=== PATIENT | female | born 1990 | race Caucasian/White ===

== ENCOUNTER 2020-10-12 10:33 | Emergency (ER) | payer OTHER, MEDICAID, SELFPAY ==
[2020-10-12 10:52] VITALS: BP 120/69; PULSE 87; RESP 18; TEMP 36.2; O2SAT 100
[2020-10-12 11:40] LABS: Basophils Absolute Auto 0.1 K/mm3 (0.0-0.1); Basophils Percent Auto 0.4 % (0.2-1.2); Eosinophils Absolute Auto 0.1 K/mm3 (0-0.3); Eosinophils Percent Auto 0.4 % (0-4.4); Hematocrit 33.3 % (37.0-47.0); Hemoglobin 11.2 g/dL (12.0-15.0); Immature Granulocyte Absolute 0.05 K/mm3 (0.00-0.031); Immature Granulocyte Percent A 0.4 % (0-0.5); Lymphocytes Absolute Auto 0.84 K/mm3 (0.9-3.2); Lymphocytes Percent Auto 6.3 % (18.3-44.2); Mean Corpuscular HGB Conc 33.6 g/dl (32-36); Mean Corpuscular Hemoglobin 31.6 pg (26-34); Mean Corpuscular Volume 94.1 fl (80-100); Mean Platelet Volume 8.9 fl (7.4-10.4); Monocytes Absolute Auto 0.5 K/mm3 (0.1-0.6); Neutrophils Absolute Auto 11.8 K/mm3 (1.3-6.7); Neutrophils Percent Auto 88.5 % (45.5-73.1); Platelet Count Result 239 k/mm3 (150-375); Red Blood Count 3.54 M/mm3 (4.2-5.4); Red Cell Distribution Width 13.6 % (11.5-14.5); White Blood Count 13.4 K/mm3 (4.5-10.0)
[2020-10-12 11:50] LABS: Alanine Aminotransferase 13 U/L (4-35); Albumin Level 3.5 g/dL (3.5-5.1); Alkaline Phosphatase 106 U/L (38-126); Anion Gap 6 mmol/L (8-16); Aspartate Amino Transferase 22 U/L (14-36); Bilirubin,Total < 0.1 mg/dL (0.2-1.3); Blood Urea Nitrogen 8 mg/dL (7-17); Calcium 8.8 mg/dL (8.4-10.2); Carbon Dioxide 24 mmol/L (22-30); Chloride 107 mmol/L (98-107); Estimated CRCL calculation 105 ml/min; Estimated Glomerular Filt Rate > 60; Glucose 89 mg/dL (65-105); Lipase 29 U/L (23-300); Potassium 3.8 mmol/L (3.4-5.0); Sodium 137 mmol/L (137-145)
--- NOTE | 2020-10-12 12:28 | PC.NURSE ---
Pt. to bathroom to attempt to provide urine specimen.
--- NOTE | 2020-10-12 13:06 | ED.ABDPAIN ---
HPI - Abdominal Pain General Chief Complaint: Abdominal Pain Stated Complaint: right flank pain 19 weeks Time Seen by Provider: 10/12/20 12:25 Source: patient Mode of arrival: ambulatory Limitations: no limitations History of Present Illness HPI narrative: 29-year-old female Patient is G1 at 19 weeks gestation She complains of a 6-day history of pain in her right flank that radiates to her right lower abdomen Really no other associated symptoms She denies hematuria or dysuria No nausea vomiting or diarrhea No fever No issues with the , no spotting or bleeding or cramping Related Data Allergies Allergy/AdvReac Type Severity Reaction Status Date / Time No Known Allergies Allergy Verified 10/12/20 15:19 Review of Systems Review of Systems: All systems reviewed & are unremarkable except as noted in HPI and below Constitutional: Constitutional: Reports no additional constitutional complaints, Denies chills, Denies fever(s) and Denies headache(s) Eyes: Eyes: Reports no additional eye complaints and Denies change in vision ENT: Denies headache(s) and Denies sore throat Cardiovascular: Cardiovascular: Denies chest pain and Denies dyspnea Respiratory: Respiratory: Denies cough and Denies dyspnea Gastrointestinal: Gastrointestinal: Reports abdominal pain, Denies diarrhea and Denies vomiting Genitourinary: Genitourinary: Denies abnormal vaginal bleeding, Denies urinary frequency, Denies dysuria and Reports flank pain Musculoskeletal: Musculoskeletal: Reports back pain, Denies deformity, Denies arthralgias, Denies joint swelling and Denies numbness Integumentary/Breasts: Skin/Breast: Denies rash and Denies wounds Neurologic: Denies headache(s), Denies focal weakness and Denies numbness Psychiatric: Psychiatric: Reports no additional psychiatric complaints [facility] Social History Social History Gender identity (if verbalized by the patient): Female Exam Const: General: cooperative, healthy appearing, no acute distress and alert Orientation/consciousness: patient oriented x3 (alert) HENMT: Head: normal to inspection, normocephalic and atraumatic Ears: external ears normal General nose exam: no epistaxis Eyes: Conjunctivae: conjunctivae normal EOM: EOMs intact bilaterally Neck: Neck: normal visual inspection, supple and no JVD Resp: Effort & Inspection: normal respiratory effort and not labored Auscultation: clear to auscultation bilaterally and other (BS =) Cardio: Rate: regular rate Rhythm: regular rhythm Heart sounds: no murmurs GI: GI Palp: Yes Soft to palpation, No Tenderness to palpation present (GI), No Guarding due to palpation present (GI) and No Rebound tenderness present Other: Abdomen essentially is completely nontender to palpation, there is no reproducible pain or tenderness Fundal height is not quite to the umbilicus yet : General: Yes CVA tenderness Other: Mild CVA tenderness on the right none on the left Skin: General skin exam: normal color and no rashes or lesions noted Neuro: General: patient oriented x3 (alert) and moves all extremities Speech: normal speech Extrem: General: normal to inspection Psych: Affect: normal affect Course Course Emergency Course: Discussed with Dr. Jamison or a dispo and treatment will get ceftriaxone here and then go home on Anc and follow-up there either on Saturday or Saturday Vital Signs Vital signs: Vital Signs Temperature 36.2 C L 10/12/20 10:52 Pulse Rate 87 10/12/20 10:52 Respiratory Rate 18 10/12/20 10:52 Blood Pressure 120/69 10/12/20 10:52 Pulse Oximetry 100 10/12/20 10:52 Temperature 36.2 C L 10/12/20 10:52 Pulse Rate 74 10/12/20 15:31 Respiratory Rate 18 10/12/20 15:31 Blood Pressure 121/73 10/12/20 15:31 Pulse Oximetry 100 10/12/20 15:31 MDM - Abdominal Pain Lab Data Result diagrams: 10/12/20 11:33 10/12/20 11:33 Labs: Lab Results
[2020-10-12 13:09] LABS: Add Urine Microscopic? YES; Appearance Urine Cloudy (Clear); Bacteria Urine Trace /hpf; Bilirubin Urine Negative (Negative); Blood Urine Negative (Negative); Color Urine Yellow (Yellow); Glucose Urine UA Negative (Negative); Ketones Urine Negative (Negative); Leukocyte Esterase Ur 3+ LEU/UL (Negative); Mucus Urine Rare /lpf; Nitrate Urine Positive (Negative); Protein Urine Negative (Negative); Specific Grav Ur 1.019 (1.001-1.035); Squamous Epithelial Cell Urine Moderate /hpf (Few); Urobilinogen Urine Negative mg/dL (<2.0); WBC Urine >75 /hpf
[2020-10-12] MEDS: Please add drug allergy info to patient profile. 1 EACH XX (15:20)
[2020-10-12 15:31] VITALS: BP 121/73; PULSE 74; RESP 18; O2SAT 100
== END 2020-10-12 15:54 | disposition home or self-care (01) ==
PROVIDERS: Emergency Medicine; Emergency Provider Emergency Medicine
DX: N39.0 Urinary tract infection, site not specified (principal)
CPT/HCPCS: 36415; 80053; 81001; 81025; 83690; 85025; 87077; 87086; 87088; 87186; 96365; 99284; J0696

== ENCOUNTER 2021-01-31 14:09 | Outpatient (RCR) | payer OTHER, SELFPAY ==
[2021-01-30 17:10] LABS: Hematocrit 32.1 % (37.0-47.0); Hemoglobin 10.2 g/dL (12.0-15.0)
[2021-01-30 20:29] LABS: Glucose 1 Hour PP 50gm Dose 166 mg/dL
[2021-01-30 21:18] LABS: HIV 1/2 Ab P24 Ag Result Negative (Negative)
[2021-01-31] MEDS: RHO(D) IMMUNE GLOBULIN 300 MCG/2 ML SYRINGE IM (14:09)
== END 2021-04-30 23:59 | disposition home or self-care (01) ==
LOC: ANHLAB 14:09
PROVIDERS: Visit Provider Obstetrics & Gynecology
DX: Z11.4 Encounter for screening for human immunodeficiency virus [HIV] (principal); Z29.13 Encounter for prophylactic Rho(D) immune globulin; O36.0190 Maternal care for anti-D [Rh] antibodies, unspecified trimester, not applicable or unspecified; Z3A.00 Weeks of gestation of pregnancy not specified
CPT/HCPCS: 36415; 82947; 85014; 85018; 85461; 86703; 90384; 96372; G0432; J2790

== ENCOUNTER 2021-02-20 04:36 | Inpatient (IN) | payer OTHER, SELFPAY ==
[2021-02-20] VITALS (114 sets, daily range): BP systolic 88–170; BP diastolic 46–107; PULSE 58–111; RESP 16–18; TEMP 36.2–36.9; O2SAT 80–100; BMI 24.9
[2021-02-20 05:12] LABS: Basophils Percent Auto 0.3 % (0.2-1.2); Eosinophils Absolute Auto 0.1 K/mm3 (0-0.3); Eosinophils Percent Auto 0.6 % (0-4.4); Hematocrit 29.2 % (37.0-47.0); Hemoglobin 9.7 g/dL (12.0-15.0); Immature Granulocyte Absolute 0.05 K/mm3 (0.00-0.031); Immature Granulocyte Percent A 0.4 % (0-0.5); Lymphocytes Absolute Auto 1.35 K/mm3 (0.9-3.2); Lymphocytes Percent Auto 10.9 % (18.3-44.2); Mean Corpuscular HGB Conc 33.2 g/dl (32-36); Mean Corpuscular Hemoglobin 29.8 pg (26-34); Mean Corpuscular Volume 89.6 fl (80-100); Mean Platelet Volume 9.6 fl (7.4-10.4); Monocytes Absolute Auto 0.7 K/mm3 (0.1-0.6); Monocytes Percent Auto 5.7 % (2.6-8.5); Neutrophils Absolute Auto 10.2 K/mm3 (1.3-6.7); Neutrophils Percent Auto 82.1 % (45.5-73.1); Platelet Count Result 252 k/mm3 (150-375); Red Blood Count 3.26 M/mm3 (4.2-5.4); Red Cell Distribution Width 15.3 % (11.5-14.5); White Blood Count 12.4 K/mm3 (4.5-10.0)
[2021-02-20] MEDS: fentaNYL CITRATE INJ (*CRX) 100 MCG/2 ML VIAL 50 MCG IV PUSH (05:14)
[2021-02-20] MEDS: LACTATED RINGERS 1,000 ML 125 ML IV CONT ×2 (05:30→05:48)
--- NOTE | 2021-02-20 05:45 | WPDANESEPP ---
Anes - Eval Pre Procedure Procedure: labor epidural Date/Time: 02/20/21 05:45 Surgeon: Addison Preop Diagnosis: Abd pain with contractions Pre Op Diagnosis: contractions Patient Data Age: 30 Gender: F Height: 1.65 m Weight: 68 kg Last Vital Signs Temp 97.1 F L 02/20/21 05:00 Allergies Allergy/AdvReac Type Severity Reaction Status Date / Time No Known Allergies Allergy Verified 10/12/20 15:19 Home Medications Medication Instructions Recorded Confirmed Type cephalexin 500 mg PO Q6H 7 Days #28 cap 10/12/20 Rx ondansetron HCl [Zofran] 4 mg PO Q6H PRN #10 tablet 10/12/20 Rx Laboratory Tests 02/20/21 02/20/21 02/20/21 05:05 05:05 05:06 WBC 12.4 K/mm3 H K/mm3 (4.5-10.0) RBC 3.26 M/mm3 L M/mm3 (4.2-5.4) Hgb 9.7 g/dL L g/dL (12.0-15.0) Hct 29.2 % L % (37.0-47.0) MCV 89.6 fl fl (80-100) MCH 29.8 pg pg (26-34) MCHC 33.2 g/dl g/dl (32-36) RDW 15.3 % H % (11.5-14.5) Plt Count 252 k/mm3 k/mm3 (150-375) MPV 9.6 fl fl (7.4-10.4) Immature Gran % (Auto) 0.4 % % (0-0.5) Neut % (Auto) 82.1 % H % (45.5-73.1) Lymph % (Auto) 10.9 % L % (18.3-44.2) Cass % (Auto) 5.7 % % (2.6-8.5) Eos % (Auto) 0.6 % % (0-4.4) Baso % (Auto) 0.3 % % (0.2-1.2) Lymph # (Auto) 1.35 K/mm3 K/mm3 (0.9-3.2) Cass # (Auto) 0.7 K/mm3 H K/mm3 (0.1-0.6) Eos # (Auto) 0.1 K/mm3 K/mm3 (0-0.3) Baso # (Auto) 0.0 K/mm3 K/mm3 (0.0-0.1) Abs Immat Gran (auto) 0.05 K/mm3 H K/mm3 (0.00-0.031) Absolute Neuts (auto) 10.2 K/mm3 H K/mm3 (1.3-6.7) Absolute Nucleated RBC 0.0 K/mm3 K/mm3 (0.0-0.012) Nucleated RBC % 0.0 % % (0.0-0.2) RPR Pending HIV 1&2 Ab/P24 Ag 4thGn Pending Patient hx anesthesia problems: none Family hx anesthesia problems: none Results Review: All pre-operative results and documents have been reviewed as part of the pre-operative evaluation. [facility] Social History Social History Smoking status: Current every day smoker Tobacco type: cigarettes Second hand tobacco smoke exposure: Yes Substance use: current Gender identity (if verbalized by the patient): Female Spiritual care concerns: No Exam Day of Procedure 02/20/21 05:45 Patient weight: normal Lungs: clear to auscultation Airway: Mallampati scale class II Neurological: alert and oriented
[2021-02-20 06:47] LABS: HIV 1/2 Ab P24 Ag Result Negative (Negative)
[2021-02-20 07:18] LABS: Amphetamine Screen Urine Negative (Negative); Barbiturate Screen Urine Negative (Negative); Benzodiazepines Screen Urine Negative (Negative); Cannabinoid Screen Urine Positive (Negative); Cocaine Screen Urine Positive (Negative); Methadone Screen Urine Negative (Negative); Opiate Screen Urine Negative (Negative); Phencyclidine Screen Urine Negative (Negative)
--- NOTE | 2021-02-20 08:50 | PC.NURSE ---
Pt's urine drug screen is positive for both cocaine and marijuana. Support person asked to step out of room to speak with pt. Explained to pt that her drug screen was positive for cocaine and the social service department would be notified. Pt first said she hadn't done cocaine but was around someone who had and there must be a cross contamination . Talked with pt about being honest with us so we can help her and the baby. She admitted to doing a line of cocaine . Discussed with her the possibility of baby having withdrawals. Pt is concerned with the baby being taken away, discussed with her that this is her first baby and she did not have any positive drug screens for cocaine in the office. Encourage pt to be open and honest with the staff and so we can assist her through this.
[2021-02-20 10:41] LABS: Rapid Plasma Reagin Non-Reactive (NonReactive)
--- NOTE | 2021-02-20 12:23 | P.PCNOB_ITS ---
OB - Delivery Note Procedure Route of delivery: Episiotomy description: None Laceration Description: Vaginal - 2nd Degree Delivery repair: chromic Specimen: Yes Quantitative Blood Loss (ml): 350 Anesthesia type: Epidural Disposition: floor Narrative: Patient was prepped in the usual manner for this procedure. Maternal expulsive efforts readily delivered vertex with nuchal cord noted. Rest of baby was delivered cord was clamped and cut placenta delivered spontaneously. Cervix vagina and vulva were inspected with second-degree midline laceration noted. This was approximated using 2 0 chromic to approximate the vaginal tissue in a running interlocking manner by the deep tissue and subcuticular layer to approximate the skin. At this point the procedure was considered terminated with immediate postoperative condition of mother baby both excellent. [place] Baby Weeks of gestation at delivery: 38 gender: Male Weight (pounds): 7 Weight (ounces): 0 score one minute: 8 score five minutes: 8
--- NOTE | 2021-02-20 12:23 | WPDHPUPDATE1 ---
History and Physical Update Update Date/Time: 02/20/21 12:23 History and Physical has been reviewed, including an updated exam of the patient. There are NO changes in the patient's condition. Risks, benefits, and alternatives have been discussed and questions answered. Patient agrees to proceed with procedure.
--- NOTE | 2021-02-20 12:23 | WPDOBADMIT ---
Obstetrics - Admit Note Admission Note: record reviewed. No pertinent additions to the history and/or any subsequent changes in the physical findings that are not consistent with the expected course of the were found. Additions to the history and/or subsequent changes in the physical findings follow. None.
[2021-02-20] MEDS: BENZOCAINE 20% AER SPR (*SP) 56 GM CAN 1 SPRAY TOPICAL (14:13)
[2021-02-20] MEDS: WITCH HAZEL 40 PADS 1 PAD TOPICAL (14:13)
--- NOTE | 2021-02-20 15:15 | PC.NURSE ---
1445-Patient transferred to post room #281 via wheelchair. Support person present. Oriented to unit, room, information board, rooming in, admission packet and security measures. Patient verbalizes understanding.
[2021-02-20] MEDS: POLYSACCHARIDE IRON COMPLEX 150 MG CAPSULE PO (17:59)
[2021-02-20] MEDS: DOCUSATE SODIUM 100 MG CAPSULE PO (17:59)
[2021-02-20] MEDS: CLINDAMYCIN HCL 150 MG CAP 300 MG PO ×2 (18:00→23:26)
[2021-02-20] MEDS: IBUPROFEN 600 MG TABLET PO ×2 (18:03→23:31)
[2021-02-20] MEDS: SERTRALINE HCL 50 MG TABLET 100 MG PO (23:26)
[2021-02-21] VITALS: BP 144/84; PULSE 80; RESP 18; TEMP 36.6; O2SAT 100
[2021-02-21] MEDS: diphenhydrAMINE HCl CAP 25 MG CAPSULE PO (03:25)
[2021-02-21] MEDS: ACETAMINOPHEN 325 MG TABLET 650 MG PO (03:25)
[2021-02-21 04:00] VITALS: BP 152/82; PULSE 72; RESP 18; TEMP 36.4; O2SAT 100
[2021-02-21] MEDS: CLINDAMYCIN HCL 150 MG CAP 300 MG PO ×2 (05:08→12:43)
[2021-02-21 05:12] LABS: Hematocrit 26.1 % (37.0-47.0); Hemoglobin 8.5 g/dL (12.0-15.0)
--- NOTE | 2021-02-21 07:15 | P.DS_ITS ---
DS: Admitting Diagnosis Discharge Date 02/21/21 Admitting Diagnosis OB - DS: Summary OB Procedures : None OB Procedures Intrapartum: Spontaneous Vag Delivery OB Procedures: : None Time Spent with Patient Time attestation: Total time spent providing and/or coordinating discharge services: DS: Data Data Completed and Pending Pending studies at discharge: Pending at discharge 02/20/21 12:43 Surgical [PTH] Routine Labs on day of discharge: Labs from last 24 hours 02/21/21 02/20/21 02/20/21 03:15 06:50 05:05 Hgb 8.5 L Hct 26.1 L Urine Opiates Screen Negative Urine Methadone Screen Negative Ur Barbiturates Screen Negative Ur Phencyclidine Scrn Negative Ur Amphetamine Screen Negative U Benzodiazepines Scrn Negative Urine Cocaine Screen Positive A U Cannabinoids Screen Positive A RPR Antibody Identification Passive Due to RH Imm Glob Antigen Identification TNP JOHN, IgG Interpret Not Performed JOHN, Poly Interpret Negative JOHN, Complement Interp Not Performed 02/20/21 05:05 Hgb Hct Urine Opiates Screen Urine Methadone Screen Ur Barbiturates Screen Ur Phencyclidine Scrn Ur Amphetamine Screen U Benzodiazepines Scrn Urine Cocaine Screen U Cannabinoids Screen RPR Non-reactive Antibody Identification Antigen Identification JOHN, IgG Interpret JOHN, Poly Interpret JOHN, Complement Interp Discharge Plan Discharge Discharging Clinician: Tim Jaime Patient Disposition: Home, Self-Care Activity: as tolerated Diet: as tolerated Patient Instructions: Antibiotic Form, How to Stop Smoking (DC) Stand Alone Forms: General Discharge Information Follow-up/Referrals: Tim Jaime MD [Physician] - 3 Weeks Discharge Medications: New ibuprofen 600 mg Tablet 600 mg PO Q6H PRN (Reason: Cramping) Qty: 30 RF: 0 clindamycin HCl 150 mg Capsule 300 mg PO Q6HR 10 Days Qty: 80 RF: 0 Continued sertraline 50 mg tablet 100 mg PO HS RF: 0 Discontinued cephalexin 500 mg capsule 500 mg PO Q6H 7 Days Qty: 28 RF: 0 ondansetron HCl [Zofran] 4 mg tablet 4 mg PO Q6H PRN (Reason: nausea and vomiting) Qty: 10 RF: 0 Date of admission: 02/20/21 04:36 Primary Care Provider: PHYSICIAN,ATTENDING PSYCHIATRIST Admitting Provider: Tim Jaime Attending physician on admission: Tim Jaime Condition: Stable
[2021-02-21 08:25] VITALS: BP 126/74; PULSE 68; RESP 18; TEMP 36.7; O2SAT 100
--- NOTE | 2021-02-21 08:38 | PCCCNOTE ---
Care Coordination Consult: Met with pt. and her friend Evelin. This is Hilario's first child. FOB is unknown at this time as it could be between two gentleman. Hilario has all necessary supplies for the baby including a crib, carseat, clothing, diapers, and formula. She plans to apply for [employer] services. Hilario admits to marijuana use during , recreationally using to help with anxiety. Pt. was honest about her cocaine use and reports she did a line of coke yesterday but she does not know why she did it. Reports she has never used cocaine before and does not plan to use again. She does admit she has suffered from anxiety and depression with her OB prescribing her Zoloft. Hilario has not consistently taken the Zoloft. Pt. does not have a PMD or mental health provider, offered a list which she is agreeable to receiving. Pt. aware DCFS will be contacted for substance use during . Completed online DCFS report # [id number], awaiting determination from DCFS.
[2021-02-21] MEDS: POLYSACCHARIDE IRON COMPLEX 150 MG CAPSULE PO (09:14)
[2021-02-21] MEDS: DOCUSATE SODIUM 100 MG CAPSULE PO (09:14)
[2021-02-21] MEDS: IBUPROFEN 600 MG TABLET PO (09:14)
--- NOTE | 2021-02-21 10:30 | WPDANLDPN2 ---
Anes-Prog Note L&D Date/Time: 02/21/21 10:30 Comfortable throughout: labor and delivery Neuraxial method: epidural Epidural/Spinal procedure site: clean & non-tender Neuro status: Neuro function grossly intact. Cardiovascular status: normal Respiratory status: normal Airway patency: baseline Mental status: baseline Post-Op hydration status: normal Vital Signs: Last Vital Signs Temp 36.7 C 02/21/21 08:25 Pulse 68 02/21/21 08:25 Resp 18 02/21/21 08:25 BP 126/74 02/21/21 08:25 Pulse Ox 100 02/21/21 08:25 Pain score (VAS): 2 Post-procedural complaints: none Patient feedback: Patient satisfied with anesthetic care.
[2021-02-21] MEDS: RHO(D) IMMUNE GLOBULIN 300 MCG/2 ML SYRINGE IM (11:02)
--- NOTE | 2021-02-21 11:58 | PC.NURSE ---
Rubella was reported as non-immune in the patient's notes. The lab results in the on 08/09/20 list her rubella titer as 1.72 which is consistent with immunity. Rubella vaccine was not administered because patient is immune.
--- NOTE | 2021-02-21 12:10 | PC.NURSE ---
Yesi Muniz with DCFS here to see patient.
[2021-02-21] MEDS: TETANUS,DIPHTHERIA,AC PERTUSSIS ADULT (0.5 ML) BOOSTRIX IM (12:43)
--- NOTE | 2021-02-21 12:45 | PC.NURSE ---
Patient received instruction on viewing the discharge video Mother & Baby Care, The First Two Weeks . Patient was given the opportunity and encouraged to ask questions. Patient verbalized understanding of information shared and has been given the mother/baby guide for home reference.
--- NOTE | 2021-02-21 13:30 | PC.NURSE ---
Patient discharged to a no care bed. Patient plans to leave the hospital to get things ready at home. DCFS is going to make a home visit. Patient plans to return to be with baby.
== END 2021-02-21 13:30 | disposition home or self-care (01) | DRG 560 ==
LOC: ANHLDR 04:56 → ANHOB2 14:56
PROVIDERS: Admitting Provider Obstetrics & Gynecology; Visit Provider Obstetrics & Gynecology
DX: O24.429 Gestational diabetes mellitus in childbirth, unspecified control (principal); O13.4 Gestational [pregnancy-induced] hypertension without significant proteinuria, complicating childbirth; O99.334 Smoking (tobacco) complicating childbirth; O77.0 Labor and delivery complicated by meconium in amniotic fluid; O70.1 Second degree perineal laceration during delivery; O69.81X0 Labor and delivery complicated by cord around neck, without compression, not applicable or unspecified; F17.210 Nicotine dependence, cigarettes, uncomplicated; Z3A.38 38 weeks gestation of pregnancy; Z37.0 Single live birth
CPT/HCPCS: 36415; 80307; 85014; 85018; 85025; 85461; 86592; 86703; 86850; 86880; 86900; 86901; 86902; 88307; 90384; 90715; A9270; G0432; J2790; J2795; J3010; J7120